=== PATIENT | female | born 1945 | race Caucasian/White ===

== ENCOUNTER 2017-10-19 17:43 | Emergency (ER) | payer BC ==
[2017-10-19 18:27] LABS: #Basophils 0.1 thou/uL (0.0-0.2); #Eosinphils 0.5 thou/uL (0.0-0.7); #Lymphocytes 2.7 thou/uL (1.20-3.40); #Monocytes 0.4 thou/uL (0.11-0.59); #Neutrophils 3.5 thou/uL (1.40-6.50); %Basophils 2.1 % (0.0-1.0); %Eosinophils 6.7 % (0.0-10.0); %Lymphocytes 37.7 % (21.0-51.0); %Monocytes 5.2 % (0.0-10.0); %Neutrophils 48.4 % (42.0-75.0); Hemoglobin 12.9 g/dL (12.0-16.0); Mean Corpuscular HGB CONC 33.9 g/dL (32.0-36.0); Mean Corpuscular Hemoglobin 30.4 pg (27.0-31.0); Mean Corpuscular Volume 89.8 fL (78.0-98.0); Mean Platelet Volume 5.9 fL (7.4-10.4); Platelet Count 287 thou/uL (130-400); RBC Distribution Width 12.1 % (11.5-14.5); Red Blood Cell (RBC) Count 4.25 mill/uL (4.20-5.40); White Blood Cell (WBC) Count 7.1 thou/uL (4.8-10.8)
[2017-10-19 18:49] LABS: ALT (SGPT) 14 U/L (8-55); AST (SGOT) 18 U/L (5-34); Alkaline Phosphatase 122 U/L (40-150); Anion Gap 11 mmol/L (10-20); BUN (Urea Nitrogen) 6 mg/dL (9.8-20.1); Bilirubin, Total 0.6 mg/dL (0.2-1.2); Calc. Creatinine Clearance 0 mL/min (70-130); Calcium 9.3 mg/dL (7.8-10.44); Carbon Dioxide 24 mmol/L (23-31); Chloride 103 mmol/L (98-107); Estimated GFR-MDRD Greater than 90; Globulin 3.8 g/dL (2.4-3.5); Glucose 88 mg/dL (83-110); Potassium 4.3 mmol/L (3.5-5.1); Protein, Total 7.8 g/dL (6.0-8.3); Sodium 134 mmol/L (136-145)
[2017-10-19 18:53] LABS: CKMB 0.5 ng/mL (0-6.6); Troponin I 0.015 ng/mL (< 0.028)
[2017-10-19 19:08] LABS: Free T4 (Free Thyroxine) 0.91 ng/dL (0.70-1.48)
[2017-10-19 20:09] LABS: Bilirubin Negative (Negative); Blood, Urine Negative (Negative); Clarity CLEAR (Clear); Glucose, Urine (Dipstick) Negative (Negative); Leukocyte Negative (Negative); Nitrite Negative (Negative); Protein, Urine (Dipstick) Negative (Neg-Trace); Specific Gravity, Urine 1.004 (1.002-1.036); Urobilinogen 0.2 mg/dL (0.2-1.0); pH, Urine 7.5 (5.0-9.0)
--- NOTE | 2017-10-20 02:14 | CON ---
DATE OF CONSULTATION: 10/19/2017 HISTORY OF PRESENT ILLNESS: This is a 72-year-old female who was transferred here from [facility] this evening for a suprasellar mass found on CT. The patient reports that this morning she was in the shower and fell backwards landing on her back and her head. She states that it almost feels lik e she was pushed backwards, which is impossible because she lives by herself. The patient states jermain t she laid on the ground for a bit, she did not lose consciousness, she was able to pick herself up a nd actually she got ready to go to physical therapy. Once she arrived to physical therapy, she state s that they told her that she needed to go to the ER to be evaluated for the head trauma. The patien t states that upon arrival at the [place] [facility], they did a CT where there were no fractures or ble eds, but they did find a suprasellar mass. They are concerned and transferred her to [facility]. The patient states that she is not dizzy. She is normally very active. She has a mild headac he that she states feels like she hit her head on the ground. At this time, she has no numbness or t ingling or any decrease in strength compared to normal. She states that she is in physical therapy f or lower extremity weakness without injury, but she feels like it is improving with therapy. PAST MEDICAL HISTORY: The patient had a heart valve replacement aortic, glaucoma, hypothyroidism. PAST SURGICAL HISTORY: In 2010 with her aortic heart valve replacement, Baltazar's esophagus surgery. SOCIAL HISTORY: The patient denies any alcohol or drug use. She is a never smoker and she lives at home alone. She states that her activities per son are she is "the christianity lady." ALLERGIES: There are no known drug allergies. MEDICATIONS: Synthroid, metoprolol, Zioptan. REVIEW OF SYSTEMS: The patient denies any fever or chills, she denies any changes in vision or cleaning es in hearing, she denies any sore throat. She reports some difficulty with swallowing, she denies a ny chest pain, shortness of breath or palpitations, she denies any abdominal pain, nausea or vomiting , she denies any difficulty with urinary or change in bowels, no frequency, no diarrhea, or constipat ion. She denies any muscle or joint pain. PHYSICAL EXAMINATION: VITAL SIGNS: Blood pressure 120/51, heart rate 57, respiratory rate 16, temperature 98.6, pain 5, O2 sat 96% on room air. GENERAL: The patient is resting comfortably in her hospital bed. She does not appear to be in any d istress. She is oriented to person, place, and time. She is afebrile. HEAD: Atraumatic and normocephalic. EYES: Pupils are equal, round, and reactive to light. Extraocular movements are intact. No nystagm us. ENT: Hearing is intact. Mucous membranes are moist. NECK: Normal range of motion. Trachea is midline. No masses. RESPIRATORY: Normal work of breathing room air. CARDIOVASCULAR: Regular rate and rhythm. Heart sounds normal. EXTREMITIES: Upper extremities, 4/5 strength in deltoids, biceps, triceps. Sensation is intact to l ight touch. Lower extremities, 5/5 strength in hip flexion, knee flexion, knee extension, dorsiflexi on, plantar flexion. Sensation is intact, possibly increased on the right side of the calf. NEUROLOGIC: The patient is oriented to person, place, and time. Speech is normal, fluent and sponta neous. Normal fund of knowledge. Cranial nerves are intact II-XII tested. There are no focal motor deficits. No focal sensory deficits. Facial symmetry and no decreased sensation of the face. IMAGING: CT brain shows a suprasellar mass about 2.2 cm. ASSESSMENT AND PLAN: The workup for this lesion includes a CT angiogram and MRI with and without con trast. However, the workup can be fine as an outpatient. The patient did not have an acute onset of headache today. She did not reach the maximum pain scale in less than 1 second. We will have this patient see us in our clinic on an outpatient basis.
== END 2017-10-19 20:28 | disposition home or self-care (01) ==
LOC: ERS 17:43
DX: E23.6 Other disorders of pituitary gland (principal); E03.9 Hypothyroidism, unspecified; Z79.899 Other long term (current) drug therapy
CPT/HCPCS: 36415; 81003; 82553; 84439; 84443; 84484

== ENCOUNTER 2017-11-16 10:55 | Outpatient (CLI) | payer BC ==
[2017-11-16 11:40] LABS: Estimated GFR-MDRD - POC Greater than 90
--- NOTE | 2017-11-16 13:38 | CT ---
CT BRAIN WITHOUT CONTRAST: CT ANGIOGRAM HEAD WITH CONTRAST: HISTORY: Suprasellar mass. COMPARISON: CT brain from 10/19/2017. TECHNIQUE: CT brain performed without intravenous contrast. Subsequently, CT angiogram of the head was performe d after the intravenous administration of contrast. FINDINGS: There is a size unchanged suprasellar mass with posterior hyperdensity. This does not appear to be a peripherally thrombosed pseudoaneurysm. No significant interval enhancement. The basilar artery is patent. The vertebral arteries are patent. Posterior circulation is patent. The middle cerebral arteries are patent. The left A1 segment is at tenuated, with the majority of the left A2 segment being fed by the anterior communicating artery. No abnormal enhancing mass. The calvarium is intact. The paranasal sinuses and mastoids are clear. IMPRESSION: No significant interval enhancement of the large suprasellar mass with a smoothly marginated expansil e sella. This is not felt to represent a giant aneurysm. MRI with and without contrast recommended. POS: YASMEEN
--- NOTE | 2017-11-16 14:30 | MRI ---
BRAIN MRI WITH AND WITHOUT CONTRAST: CLINICAL HISTORY: Intracranial mass/brain lab protocol. R22.0, suprasellar mass. COMPARISON: Reference made to prior CTA head exam and CT brain exam, dated 11/16/2017 and 10/19/2017, respectivel y. 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 This does exert undersurface mass effect upon the optic chiasm. A normal pituitary gland is not vis ualized. The infundibulum is also effaced. The mass measured 2 cm craniocaudal x 2.1 cm transverse. The mass abuts the medial surface of each cavernous carotid flow void, although it does not entirel y encase either flow void. Multifocal white matter signal alteration in the bilateral cerebral hemispheres indicates mild chroni c microvascular ischemic disease. There is no acute territorial infarction or midline shift. The ve ntricular system is age appropriate in size. No pathologic intraaxial enhancement evident. 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 POS: YASMEEN
== END 2017-11-16 10:56 | disposition home or self-care (01) ==
LOC: MRI 10:55
PROVIDERS: ATTEND Neurological Surgery
DX: G93.9 Disorder of brain, unspecified (principal)
CPT/HCPCS: 70496; 70553; 82565

== ENCOUNTER 2021-11-13 09:59 | Inpatient (IN) | payer MEDICARE, BC ==
[2021-11-13 10:18] LABS: Hemoglobin 10.9 g/dL (12.0-16.0); Mean Corpuscular HGB CONC 32.8 g/dL (32.0-36.0); Mean Corpuscular Hemoglobin 30.6 pg (27.0-31.0); Mean Corpuscular Volume 93.2 fL (78.0-98.0); Mean Platelet Volume 6.4 fL (7.4-10.4); Platelet Count 208 thou/uL (130-400); RBC Distribution Width 12.7 % (11.5-14.5); Red Blood Cell (RBC) Count 3.57 mill/uL (4.20-5.40); White Blood Cell (WBC) Count 3.8 thou/uL (4.8-10.8)
[2021-11-13 10:32] LABS: ALT (SGPT) 12 U/L (8-55); AST (SGOT) 23 U/L (5-34); Albumin 3.7 g/dL (3.4-4.8); Alkaline Phosphatase 68 U/L (40-110); Anion Gap 10 mmol/L (10-20); BUN (Urea Nitrogen) 8 mg/dL (9.8-20.1); Bilirubin, Total 0.6 mg/dL (0.2-1.2); CK (CPK) 21 U/L (29-168); Calc. Creatinine Clearance 0 mL/min (70-130); Carbon Dioxide 27 mmol/L (23-31); Chloride 99 mmol/L (98-107); Estimated GFR 93; Glucose 83 mg/dL (83-110); Lipase 9 U/L (8-78); Potassium 5.3 mmol/L (3.5-5.1); Protein, Total 7.7 g/dL (5.8-8.1); Sodium 131 mmol/L (136-145)
[2021-11-13 10:35] LABS: Band 1 % (5-11); Eosinophils 4 % (0-10); Lymphocytes 49 % (21-51); MDiff Complete? YES; Monocytes 4 % (0-10); Neutrophil 38 % (42-75); Platelet Morphology Comment Appears Adequate; RBC Morphology Normal; Reactive Lymphocytes 4 % (0-10)
[2021-11-13] MEDS ORDERED: Aspirin Chewable 81 MG TAB ONE (10:44)
[2021-11-13 12:37] LABS: SARS-CoV-2 NAA Rapid Test Not Detected (NotDetected)
[2021-11-13 13:37] LABS: Troponin I 0.024 ng/mL (< 0.028)
[2021-11-13] MEDS ORDERED: Ondansetron ODT 4 MG TAB PO PRN (13:51)
[2021-11-13] MEDS ORDERED: Senokot S 8.6-50 MG TAB PO PRN (13:51)
[2021-11-13] MEDS ORDERED: Ondansetron PF 4 MG/2 ML Vial IVP PRN (13:51)
[2021-11-13 15:01] VITALS: BMI 27.1
[2021-11-13] MEDS: Sodium Chloride 0.9% 1,000 ML IV SCH (15:24)
[2021-11-13] MEDS ORDERED: Iopamidol-370 76% 500 ML 1 ML ONE (15:46)
[2021-11-13 15:52] LABS: Bacteria/HPF None Seen HPF (None Seen); Bilirubin Negative (Negative); Blood, Urine Negative (Negative); Clarity Clear (Clear); Glucose, Urine (Dipstick) Normal (Negative); Ketone, Urine Negative (Negative); Leukocyte Negative Leu/uL (Negative); Nitrite Negative (Negative); Protein, Urine (Dipstick) Negative (Neg-Trace); RBC/HPF 0-3 HPF (0-3); Specific Gravity, Urine 1.022 (1.002-1.036); Squamous Epithelial 0-3 HPF (0-3); Urobilinogen Normal mg/dL (Less than 2); WBC/HPF None Seen HPF (0-3); pH, Urine 7.5 (5.0-9.0)
[2021-11-13] MEDS ORDERED: Magnevist 469MG/ML 20 ML VIAL ONE (16:00)
[2021-11-13 16:43] LABS: Troponin I 0.017 ng/mL (< 0.028)
[2021-11-13] MEDS: Famotidine 20 MG TAB PO SCH (20:02)
[2021-11-14 05:51] LABS: #Basophils 0.1 thou/uL (0.0-0.2); #Eosinphils 0.1 thou/uL (0.0-0.7); #Lymphocytes 1.8 thou/uL (1.20-3.40); #Monocytes 0.3 thou/uL (0.11-0.59); #Neutrophils 1.5 thou/uL (1.40-6.50); %Basophils 1.3 % (0.0-1.0); %Monocytes 7.9 % (0.0-10.0); %Neutrophils 39.8 % (42.0-75.0); Mean Corpuscular HGB CONC 33.6 g/dL (32.0-36.0); Mean Corpuscular Hemoglobin 31.5 pg (27.0-31.0); Mean Corpuscular Volume 93.8 fL (78.0-98.0); Mean Platelet Volume 6.7 fL (7.4-10.4); Platelet Count 190 thou/uL (130-400); RBC Distribution Width 12.9 % (11.5-14.5); Red Blood Cell (RBC) Count 3.16 mill/uL (4.20-5.40); White Blood Cell (WBC) Count 3.8 thou/uL (4.8-10.8)
[2021-11-14 06:01] LABS: Anion Gap 11 mmol/L (10-20); BUN (Urea Nitrogen) 7 mg/dL (9.8-20.1); Calc. Creatinine Clearance 70 mL/min (70-130); Calcium 8.3 mg/dL (7.8-10.44); Carbon Dioxide 21 mmol/L (23-31); Cardiac Risk 3.6 (Less than 4.5); Chloride 104 mmol/L (98-107); Cholesterol 177 mg/dl (< 200 Desired); Estimated GFR 93; Glucose 71 mg/dL (83-110); HDL Cholesterol 49 mg/dL (>60 Neg Risk); LDL Cholesterol, Calculated 115 mg/dL; Potassium 4.3 mmol/L (3.5-5.1); Sodium 132 mmol/L (136-145); Triglycerides 67 mg/dL (Less than 150)
[2021-11-14] MEDS: Famotidine 20 MG TAB PO SCH ×2 (09:20→20:57)
[2021-11-14] MEDS: Aspirin 81 mg Enteric Coated Tablet PO SCH (09:21)
[2021-11-14] MEDS: Sodium Chloride 0.9% 1,000 ML IV SCH (09:26)
[2021-11-14] MEDS ORDERED: Atorvastatin Calcium 40 MG TAB PO SCH (21:00)
[2021-11-14] MEDS ORDERED: Latanoprost 0.005% Ophth Soln 2.5 ml Bottle EA EYE SCH (22:00)
[2021-11-15 06:00] LABS: #Eosinphils 0.1 thou/uL (0.0-0.7); #Lymphocytes 1.8 thou/uL (1.20-3.40); #Monocytes 0.4 thou/uL (0.11-0.59); %Basophils 0.7 % (0.0-1.0); %Eosinophils 3.3 % (0.0-10.0); %Lymphocytes 40.7 % (21.0-51.0); %Monocytes 8.2 % (0.0-10.0); %Neutrophils 47.1 % (42.0-75.0); Hemoglobin 10.5 g/dL (12.0-16.0); Mean Corpuscular HGB CONC 33.6 g/dL (32.0-36.0); Mean Corpuscular Hemoglobin 31.2 pg (27.0-31.0); Mean Corpuscular Volume 92.9 fL (78.0-98.0); Mean Platelet Volume 6.7 fL (7.4-10.4); Platelet Count 201 thou/uL (130-400); RBC Distribution Width 12.7 % (11.5-14.5); Red Blood Cell (RBC) Count 3.37 mill/uL (4.20-5.40); White Blood Cell (WBC) Count 4.3 thou/uL (4.8-10.8)
[2021-11-15] MEDS ORDERED: Levothyroxine Sodium 25 MCG TAB PO SCH (06:00)
[2021-11-15 06:22] LABS: Anion Gap 10 mmol/L (10-20); BUN (Urea Nitrogen) 8 mg/dL (9.8-20.1); Calc. Creatinine Clearance 70 mL/min (70-130); Carbon Dioxide 26 mmol/L (23-31); Chloride 99 mmol/L (98-107); Estimated GFR 93; Glucose 75 mg/dL (83-110); Potassium 4.8 mmol/L (3.5-5.1); Sodium 130 mmol/L (136-145)
[2021-11-15] MEDS: Aspirin 81 mg Enteric Coated Tablet PO SCH (08:47)
[2021-11-15] MEDS: Famotidine 20 MG TAB PO SCH (08:47)
[2021-11-15 11:19] VITALS: TEMP 98.2
[2021-11-15 12:04] VITALS: BP 128/72
[2021-11-15] MEDS ORDERED: Latanoprost 0.005% Ophth Soln 2.5 ml Bottle EA EYE SCH (21:00)
== END 2021-11-15 15:33 | disposition home or self-care (01) | DRG 644 ==
LOC: ERS 09:59 → ERHOLD 11:09 → NEURO 14:18
PROVIDERS: ADMIT Family Medicine; ATTEND Family Medicine
DX: E23.6 Other disorders of pituitary gland (principal); E87.1 Hypo-osmolality and hyponatremia; Z20.822 Contact with and (suspected) exposure to COVID-19; K21.9 Gastro-esophageal reflux disease without esophagitis; E03.9 Hypothyroidism, unspecified; H40.9 Unspecified glaucoma; Z60.2 Problems related to living alone; E87.5 Hyperkalemia; I10 Essential (primary) hypertension; I08.3 Combined rheumatic disorders of mitral, aortic and tricuspid valves; Z88.2 Allergy status to sulfonamides; Z79.899 Other long term (current) drug therapy; Z79.890 Hormone replacement therapy; Z95.2 Presence of prosthetic heart valve
CPT/HCPCS: 36415; 70450; 70496; 70498; 70553; 71045; 80048; 80053; 80061; 81001; 82550; 83690; 84443; 84484; 85025; 93005; 93306; A9579; J7050; Q9967; U0002

== ENCOUNTER 2022-04-06 15:42 | Observation (INO) | payer BC, MEDICARE ==
[2022-04-06 17:01] LABS: #Basophils 0.1 thou/uL (0.0-0.2); #Eosinphils 0.1 thou/uL (0.0-0.7); #Lymphocytes 1.9 thou/uL (1.20-3.40); #Monocytes 0.2 thou/uL (0.11-0.59); #Neutrophils 2.1 thou/uL (1.40-6.50); %Basophils 2.7 % (0.0-1.0); %Eosinophils 2.3 % (0.0-10.0); %Lymphocytes 43.5 % (21.0-51.0); %Monocytes 4.5 % (0.0-10.0); Hemoglobin 10.5 g/dL (12.0-16.0); Mean Corpuscular HGB CONC 32.6 g/dL (32.0-36.0); Mean Corpuscular Hemoglobin 30.2 pg (27.0-31.0); Mean Corpuscular Volume 92.7 fl (78.0-98.0); Mean Platelet Volume 6.5 fL (7.4-10.4); Platelet Count 229 10x3/uL (130-400); RBC Distribution Width 12.7 % (11.5-14.5); Red Blood Cell (RBC) Count 3.49 mill/uL (4.20-5.40); White Blood Cell (WBC) Count 4.4 10x3/uL (4.8-10.8)
[2022-04-06 17:21] LABS: ALT (SGPT) 10 U/L (8-55); AST (SGOT) 23 U/L (5-34); Albumin 3.7 g/dL (3.4-4.8); Alkaline Phosphatase 71 U/L (40-110); Anion Gap 13 mmol/L (10-20); BUN (Urea Nitrogen) 8 mg/dL (9.8-20.1); Bilirubin, Total 0.5 mg/dL (0.2-1.2); Calc. Creatinine Clearance 0 mL/min (70-130); Calcium 8.5 mg/dL (7.8-10.44); Carbon Dioxide 21 mmol/L (23-31); Chloride 99 mmol/L (98-107); Estimated GFR 95; Globulin 3.5 g/dL (2.4-3.5); Glucose 75 mg/dL (83-110); Potassium 4.8 mmol/L (3.5-5.1); Protein, Total 7.2 g/dL (5.8-8.1); Sodium 128 mmol/L (136-145)
[2022-04-06] MEDS ORDERED: Electrolyte Replacement Protocol 1 EACH FS SCH (20:30)
[2022-04-06] MEDS ORDERED: Acetaminophen 325 MG TAB PO PRN (20:30)
[2022-04-06] MEDS ORDERED: Ondansetron ODT 4 MG TAB PO PRN (20:30)
[2022-04-06] MEDS ORDERED: Ondansetron PF 4 MG/2 ML Vial IVP PRN (20:30)
[2022-04-06] MEDS ORDERED: Atorvastatin Calcium 40 MG TAB PO SCH (21:00)
[2022-04-06] MEDS ORDERED: Latanoprost 0.005% Ophth Soln 2.5 ml Bottle EA EYE SCH (21:00)
[2022-04-06] MEDS ORDERED: Meclizine HCl 25 MG TAB ONE (23:04)
[2022-04-07 03:04] VITALS: BMI 21.9
[2022-04-07 05:50] LABS: #Basophils 0.1 thou/uL (0.0-0.2); #Eosinphils 0.1 thou/uL (0.0-0.7); #Lymphocytes 1.6 thou/uL (1.20-3.40); #Monocytes 0.4 thou/uL (0.11-0.59); #Neutrophils 1.6 thou/uL (1.40-6.50); %Basophils 1.8 % (0.0-1.0); %Eosinophils 2.4 % (0.0-10.0); %Lymphocytes 43.6 % (21.0-51.0); %Monocytes 9.4 % (0.0-10.0); %Neutrophils 42.8 % (42.0-75.0); Mean Corpuscular HGB CONC 32.3 g/dL (32.0-36.0); Mean Corpuscular Hemoglobin 29.9 pg (27.0-31.0); Mean Corpuscular Volume 92.4 fl (78.0-98.0); Mean Platelet Volume 6.8 fL (7.4-10.4); Platelet Count 218 10x3/uL (130-400); RBC Distribution Width 12.4 % (11.5-14.5); Red Blood Cell (RBC) Count 3.33 mill/uL (4.20-5.40); White Blood Cell (WBC) Count 3.7 10x3/uL (4.8-10.8)
[2022-04-07] MEDS ORDERED: Levothyroxine Sodium 25 MCG TAB PO SCH (06:00)
[2022-04-07 06:03] LABS: Anion Gap 8 mmol/L (10-20); BUN (Urea Nitrogen) 5 mg/dL (9.8-20.1); Calc. Creatinine Clearance 75 mL/min (70-130); Calcium 8.6 mg/dL (7.8-10.44); Carbon Dioxide 23 mmol/L (23-31); Chloride 100 mmol/L (98-107); Estimated GFR 94; Glucose 70 mg/dL (83-110); Magnesium 1.9 mg/dL (1.6-2.6); Potassium 4.9 mmol/L (3.5-5.1); Sodium 126 mmol/L (136-145)
[2022-04-07] MEDS ORDERED: Magnesium 2 GM/50 ML(in water) 2 GM in Premix Bag 1 BAG IVPB SCH (08:00)
[2022-04-07] MEDS ORDERED: Aspirin Chewable 81 MG TAB ONE (08:31)
[2022-04-07] MEDS ORDERED: Magnesium 2 GM/50 ML BAG (IN WATER) ONE (08:31)
[2022-04-07] MEDS ORDERED: Enoxaparin Sodium 40 MG/0.4 ML SYRINGE ONE (08:31)
[2022-04-07] MEDS ORDERED: Aspirin 81 mg Enteric Coated Tablet PO SCH (09:00)
[2022-04-07] MEDS ORDERED: Enoxaparin Sodium 40 MG/0.4 ML SYRINGE SC SCH (09:00)
[2022-04-07 09:47] LABS: Bacteria/HPF None Seen HPF (None Seen); Bilirubin Negative (Negative); Blood, Urine Negative (Negative); CAUTI Indications for Culture Alt mental st,lethar; Clarity Clear (Clear); Glucose, Urine (Dipstick) Normal (Negative); Ketone, Urine Trace mg/dL (Negative); Leukocyte Negative Leu/uL (Negative); Nitrite Negative (Negative); Protein, Urine (Dipstick) Negative (Neg-Trace); RBC/HPF 0-3 HPF (0-3); Specific Gravity, Urine 1.016 (1.002-1.036); Squamous Epithelial None Seen HPF (0-3); Urobilinogen Normal mg/dL (Less than 2); WBC/HPF 0-3 HPF (0-3); pH, Urine 6.5 (5.0-9.0)
[2022-04-07 09:49] LABS: Urine Culture Reflex No No
[2022-04-07 10:19] VITALS: BP 120/73; TEMP 97.9
[2022-04-07] MEDS ORDERED: Magnevist 469MG/ML 20 ML VIAL ONE (10:30)
== END 2022-04-07 14:45 | disposition home or self-care (01) ==
LOC: ERS 15:42 → ERHOLD 18:32
PROVIDERS: ADMIT Hospitalist; ATTEND Hospitalist
DX: E87.1 Hypo-osmolality and hyponatremia (principal); R42 Dizziness and giddiness; I10 Essential (primary) hypertension; E23.7 Disorder of pituitary gland, unspecified; E03.9 Hypothyroidism, unspecified; K21.9 Gastro-esophageal reflux disease without esophagitis; D64.9 Anemia, unspecified; I70.0 Atherosclerosis of aorta; Z79.82 Long term (current) use of aspirin; Z79.890 Hormone replacement therapy; Z79.899 Other long term (current) drug therapy; Z88.2 Allergy status to sulfonamides; Z95.2 Presence of prosthetic heart valve; W19.XXXA Unspecified fall, initial encounter
CPT/HCPCS: 36415; 70450; 70553; 71045; 80048; 80053; 81001; 83735; 83880; 84443; 84484; 85025; 93005; A9579; G0378; J1650; J3475